=== PATIENT | male | born 1975 | race African-American/Black ===

== ENCOUNTER 2018-02-12 18:28 | Emergency (ER) | payer OTHER ==
[2018-02-12 19:29] VITALS: TEMP 98.8; BMI 37.8
[2018-02-12] MEDS ORDERED: ACETAMINOPHEN 500 MG TABLET (FP) PO ONE (19:30)
--- NOTE | 2018-02-12 19:30 | PDOC ---
Rapid Medical Evaluation Time Seen by Provider: 02/12/18 19:24 Medical Evaluation: Allergies Allergy/AdvReac Type Severity Reaction Status Date / Time Penicillins Allergy Hives Verified 02/08/16 01:17 02/12/18 19:24 Pt with complaint of coughing hard and causing abdominal to hurt. He is a + smoker. Started 5 days ago, no fever,no sob, small production of sputum. Did not take any pain meds. No acuter resp distress. Ambulated in to ER without difficulty. suspicous for viral resp illness vs pna with muscular pain Ordered CXR, tylenol for pain. PMH: HTN 150/103 takes metoprolol, lisinopril took at 5 pm today.
[2018-02-12] MEDS ORDERED: ACETAMINOPHEN 325 MG TABLET (FP) ONE (19:48)
--- NOTE | 2018-02-12 20:00 | PDOC ---
History of Present Illness - General Chief Complaint: Cold Symptoms Stated Complaint: ABDOMINAL PAIN/COUGHING Time Seen by Provider: 02/12/18 19:24 History Source: Patient - History of Present Illness Initial Comments: 02/12/18 21:04 42 year old male with cough x 5 days with abdominal pain cramping due to constant coughing. denies fever/ chills, headache, dizziness, chest pain, diaphoresis NVD, urinary symptoms. patient current every day smoker. Past History - Past Medical History Allergies/Adverse Reactions: Allergies Allergy/AdvReac Type Severity Reaction Status Date / Time Penicillins Allergy Hives Verified 02/08/16 01:17 Home Medications: Ambulatory Orders Amlodipine Besylate [Norvasc -] 10 mg PO DAILY #30 tablet 09/21/14 Nebivolol [Bystolic -] 5 mg PO DAILY 06/09/15 Albuterol 0.083% Nebulizer Brittney [Ventolin 0.083% Nebulizer Soln -] 1 neb NEB QID PRN #30 vial 02/12/18 Albuterol Sulfate Inhaler - [Ventolin HFA Inhaler -] 1 - 2 inh PO QID PRN #1 inhaler 02/12/18 Guaifenesin [Mucinex] 600 mg PO BID PRN #10 tab.er.12h 02/12/18 Ibuprofen 600 mg PO QID PRN #20 tablet 02/12/18 COPD: No HTN: Yes Hypercholesterolemia: Yes - Suicide/Smoking/Psychosocial Hx Smoking Status: Yes Smoking History: Never smoked Have you smoked in the past 12 months: No Number of Cigarettes Smoked Daily: 0 Cigars Per Day: 2 Information on smoking cessation initiated: No Hx Alcohol Use: No Drug/Substance Use Hx: No Substance Use Type: None *Physical Exam - Vital Signs Last Vital Signs Temp Pulse Resp BP Pulse Ox 98.8 F 79 18 150/103 100 02/12/18 19:26 02/12/18 19:26 02/12/18 19:26 02/12/18 19:26 02/12/18 19:26 - Physical Exam General Appearance: Yes: Appropriately Dressed HEENT: positive: Nasal Congestion Respiratory/Chest: positive: Lungs Clear, Normal Breath Sounds. negative: Chest Tender Cardiovascular: positive: Regular Rhythm, Regular Rate Gastrointestinal/Abdominal: positive: Normal Bowel Sounds, Tender (generalized on palpation ), Soft Musculoskeletal: positive: Normal Inspection Extremity: positive: Normal Capillary Refill, Normal Inspection, Normal Range of Motion Integumentary: positive: Normal Color, Dry, Warm Neurologic: positive: Fully Oriented, Alert, Normal Mood/Affect ED Treatment Course - Medications Given in the ED: ED Medications Discontinued Medications Generic Name Dose Route Start Last Admin Trade Name Freq PRN Reason Stop Dose Admin Acetaminophen 975 mg 02/12/18 19:30 02/12/18 19:52 Tylenol - PO 02/12/18 19:31 975 mg ONCE ONE Administration Medical Decision Making - Medical Decision Making URI; high blood pressure P; albuterol cough suppresant. 02/12/18 21:26 B/P NOTED TO BE ELEVATED. PATIENT IS ASYMPTOMATIC WITH HISTORY OF HYPERTENSION. will give clonidine and reevaluate. strict return precautions reviewed with patient. close pmd follow up for b/p management discussed with patient in detail. *DC/Admit/Observation/Transfer Diagnosis at time of Disposition: Muscle spasm Reactive airway disease Qualifiers: Asthma severity: mild Asthma persistence: intermittent Asthma complication type : uncomplicated Qualified Code(s): J45.20 - Mild intermittent asthma, uncomplicated - Discharge Dispostion Disposition: HOME - Prescriptions Prescriptions: Albuterol 0.083% Nebulizer Brittney [Ventolin 0.083% Nebulizer Soln -] 1 neb NEB QID PRN #30 vial PRN Reason: Cough Albuterol Sulfate Inhaler - [Ventolin HFA Inhaler -] 1 - 2 inh PO QID PRN #1 inhaler PRN Reason: Cough Guaifenesin [Mucinex] 600 mg PO BID PRN #10 tab.er.12h PRN Reason: Cough Ibuprofen 600 mg PO QID PRN #20 tablet PRN Reason: Pain - Referrals Referrals: Dandre Mead MD [Primary Care Provider] - Call tomorrow - Patient Instructions Printed Discharge Instructions: DI for Viral Upper Respiratory Infection -- Adult Additional Instructions: use albuterol inhaler as prescribed. take ibuprofen every 6 hours as needed for pain. follow up with your doctor as soon as possible. return to the ER if symptoms worsen. - Post Discharge Activity Forms/Work/School Notes: Back to Work
[2018-02-12] MEDS ORDERED: ALBUTEROL SO4 2.5/IPRATROPIUM 0.5 INH SOL 3 ML VIAL.NEB. NEB ONE ×2 (20:09→20:25)
[2018-02-12] MEDS ORDERED: IBUPROFEN 400 MG TABLET (FP) PO ONE ×2 (20:09→20:24)
--- NOTE | 2018-02-12 21:16 | PDOC ---
*Physical Exam - Vital Signs Last Vital Signs Temp Pulse Resp BP Pulse Ox 98.8 F 79 18 150/103 100 02/12/18 19:26 02/12/18 19:26 02/12/18 19:26 02/12/18 19:26 02/12/18 19:26 ED Treatment Course - Medications Given in the ED: ED Medications Discontinued Medications Generic Name Dose Route Start Last Admin Trade Name Freq PRN Reason Stop Dose Admin Acetaminophen 975 mg 02/12/18 19:30 02/12/18 19:52 Tylenol - PO 02/12/18 19:31 975 mg ONCE ONE Administration Albuterol/Ipratropium 1 amp 02/12/18 20:09 02/12/18 20:31 Duoneb - NEB 02/12/18 20:10 1 amp ONCE ONE Administration Ibuprofen 400 mg 02/12/18 20:09 02/12/18 20:31 Motrin - PO 02/12/18 20:10 400 mg ONCE ONE Administration Medical Decision Making - Medical Decision Making 02/12/18 21:15 agree with care from DANAE ybarra *DC/Admit/Observation/Transfer Diagnosis at time of Disposition: Muscle spasm Reactive airway disease Qualifiers: Asthma severity: mild Asthma persistence: intermittent Asthma complication type : uncomplicated Qualified Code(s): J45.20 - Mild intermittent asthma, uncomplicated - Discharge Dispostion Disposition: HOME - Prescriptions Prescriptions: Albuterol 0.083% Nebulizer Brittney [Ventolin 0.083% Nebulizer Soln -] 1 neb NEB QID PRN #30 vial PRN Reason: Cough Albuterol Sulfate Inhaler - [Ventolin HFA Inhaler -] 1 - 2 inh PO QID PRN #1 inhaler PRN Reason: Cough Guaifenesin [Mucinex] 600 mg PO BID PRN #10 tab.er.12h PRN Reason: Cough Ibuprofen 600 mg PO QID PRN #20 tablet PRN Reason: Pain - Referrals Referrals: Dandre Mead MD [Primary Care Provider] - Call tomorrow - Patient Instructions Printed Discharge Instructions: DI for Viral Upper Respiratory Infection -- Adult Additional Instructions: use albuterol inhaler as prescribed. take ibuprofen every 6 hours as needed for pain. follow up with your doctor as soon as possible. return to the ER if symptoms worsen. - Post Discharge Activity Forms/Work/School Notes: Back to Work
[2018-02-12] MEDS ORDERED: cloNIDine HCL 0.1 MG TABLET PO ONE (21:26)
[2018-02-12 21:27] VITALS: PULSE 78
[2018-02-12] MEDS ORDERED: cloNIDine HCL 0.1 MG TABLET ONE (21:28)
[2018-02-12 22:23] VITALS: BP 147/115
== END 2018-02-12 22:28 | disposition home or self-care (01) ==
LOC: JER 18:28
PROC: 3E0F7GC Introduction of Other Therapeutic Substance into Respiratory Tract, Via Natural or Artificial Opening (ICD-10-PCS; principal; 2018-02-12)
DX: J45.20 Mild intermittent asthma, uncomplicated (principal); M62.838 Other muscle spasm; I10 Essential (primary) hypertension; F17.210 Nicotine dependence, cigarettes, uncomplicated
CPT/HCPCS: 71046-TC-FY; 94640; 99282-25; J0735; J7620

== ENCOUNTER 2018-04-07 16:03 | Emergency (ER) | payer OTHER ==
--- NOTE | 2018-04-07 16:30 | PDOC ---
Rapid Medical Evaluation Time Seen by Provider: 04/07/18 16:28 Medical Evaluation: Allergies Allergy/AdvReac Type Severity Reaction Status Date / Time Penicillins Allergy Hives Verified 04/07/18 16:28 I have performed a brief in-person evaluation of this patient. The patient presents with a chief complaint of: right low back pain radiating down back of right buttock, leg and into right pelvis - describes as burning. Does a lot of heavy lifting. Has been taking ibuprofen only for pain is getting worse Pertinent physical exam findings: no midline lumbar spine TTP b/l I have ordered the following: nothing The patient will proceed to the ED for further evaluation. Discharge Disposition - Diagnosis Low back pain with sciatica Qualifiers: Chronicity: acute Back pain laterality: right Sciatica laterality: sciatica of right side Qualified Code(s): M54.41 - Lumbago with sciatica, right side - Referrals - Patient Instructions - Post Discharge Activity
[2018-04-07 16:36] VITALS: BP 159/101; PULSE 84; TEMP 98.3; BMI 38.1
--- NOTE | 2018-04-07 19:05 | PDOC ---
History of Present Illness - General Chief Complaint: Back Pain Stated Complaint: BACK PAIN Time Seen by Provider: 04/07/18 16:28 History Source: Patient Exam Limitations: No Limitations - History of Present Illness Initial Comments: 43-year-old male with lower back pain and right-sided posterior lateral leg radiculopathy. He denies loss of bowel or bladder function. He has Intermittent weakness in his right leg. His pain is exacerbated with activity relieved with rest. He has taken [id number] Motrin without much relief. 04/07/18 19:00 04/07/18 19:01 Past History - Past Medical History Allergies/Adverse Reactions: Allergies Allergy/AdvReac Type Severity Reaction Status Date / Time Penicillins Allergy Hives Verified 04/07/18 16:28 Home Medications: Ambulatory Orders Amlodipine Besylate [Norvasc -] 10 mg PO DAILY #30 tablet 09/21/14 Nebivolol [Bystolic -] 5 mg PO DAILY 06/09/15 Cyclobenzaprine HCl [Flexeril 10 mg] 10 mg PO HS PRN #10 tablet 04/07/18 Methylprednisolone [Medrol Dose Vipul] 4 mg PO ASDIR #21 tablet 04/07/18 COPD: No HTN: Yes Hypercholesterolemia: Yes - Suicide/Smoking/Psychosocial Hx Smoking Status: Yes Smoking History: Never smoked Have you smoked in the past 12 months: No Number of Cigarettes Smoked Daily: 0 Cigars Per Day: 2 Hx Alcohol Use: No Drug/Substance Use Hx: No Substance Use Type: None *Physical Exam - Vital Signs Last Vital Signs Temp Pulse Resp BP Pulse Ox 98.3 F 84 19 159/101 100 04/07/18 16:28 04/07/18 16:28 04/07/18 16:28 04/07/18 16:28 04/07/18 16:28 - Physical Exam Comments: Lumbar spine skin color and temperature is normal. Range of motion is slightly decreased in both flexion and extension with pain. He has 5 out of 5 strength in bilateral lower extremities mildly positive straight leg raise test on the right negative on the left. He has no gross sensory motor deficits. He is neurovascularly intact distally. 04/07/18 19:02 *DC/Admit/Observation/Transfer Diagnosis at time of Disposition: Low back pain with sciatica Qualifiers: Chronicity: acute Back pain laterality: right Sciatica laterality: sciatica of right side Qualified Code(s): M54.41 - Lumbago with sciatica, right side - Discharge Dispostion Disposition: HOME Condition at time of disposition: Stable Admit: No - Referrals Referrals: Dandre Mead MD [Primary Care Provider] - Tristen Kramer [Non Staff, Medical] - - Patient Instructions Printed Discharge Instructions: Lumbar Radiculopathy, DI for Lumbar Radiculopathy Additional Instructions: Return to the emergency room if symptoms worsen or go on resolved prior to follow-up - Post Discharge Activity
== END 2018-04-07 19:07 | disposition home or self-care (01) ==
LOC: JER 16:03 → JERFT 16:03
DX: M54.41 Lumbago with sciatica, right side (principal); I10 Essential (primary) hypertension; E78.00 Pure hypercholesterolemia, unspecified; Z88.0 Allergy status to penicillin
CPT/HCPCS: 99281-25

== ENCOUNTER 2019-10-27 00:45 | Emergency (ER) | payer OTHER ==
[2019-10-27 02:41] VITALS: BP 162/98; PULSE 67; TEMP 98.2; BMI 34.7
[2019-10-27] MEDS ORDERED: predniSONE 20 MG TABLET (UD) PO ONE (03:54)
[2019-10-27] MEDS ORDERED: ALBUTEROL SO4 2.5/IPRATROPIUM 0.5 INH SOL 3 ML VIAL.NEB. NEB ONE (03:59)
[2019-10-27] MEDS ORDERED: predniSONE 20 MG TABLET (UD) ONE (03:59)
[2019-10-27] MEDS: ALBUTEROL SO4 2.5/IPRATROPIUM 0.5 INH SOL 3 ML VIAL.NEB. NEB SCH ×4 (04:05→04:55)
--- NOTE | 2019-10-27 04:23 | PDOC ---
History of Present Illness - General Chief Complaint: Respiratory Stated Complaint: Wheezing Time Seen by Provider: 10/27/19 03:43 History Source: Patient - History of Present Illness Initial Comments: 10/27/19 04:25 44-year-old male complaining of chest congestion, wheezing and cough for the last 2 days. Patient reports that the symptoms have worsened and patient is unable to sleep at night. Patient reports that he is a cigarettes smoker denies chest pain, nausea, vomiting, abdominal pain, headache, fever/ chills Past History - Past Medical History Allergies/Adverse Reactions: Allergies Allergy/AdvReac Type Severity Reaction Status Date / Time Penicillins Allergy Hives Verified 10/27/19 02:42 Home Medications: Ambulatory Orders Amlodipine Besylate [Norvasc -] 10 mg PO DAILY #30 tablet 09/21/14 Nebivolol [Bystolic -] 5 mg PO DAILY 06/09/15 Cyclobenzaprine HCl [Flexeril 10 mg] 10 mg PO HS PRN #10 tablet 04/07/18 Methylprednisolone [Medrol Dose Vipul] 4 mg PO ASDIR #21 tablet 04/07/18 Albuterol Sulfate Inhaler - [Ventolin HFA Inhaler -] 1 - 2 inh PO Q4H PRN #1 inhaler 10/27/19 Azithromycin 250 mg PO DAILY #4 tablet 10/27/19 predniSONE [Deltasone -] 40 mg PO UTDICT #8 tablet 10/27/19 COPD: No HTN: Yes Hypercholesterolemia: Yes - Psycho Social/Smoking Cessation Hx Smoking Status: Yes Smoking History: Current every day smoker Have you smoked in the past 12 months: No Number of Cigarettes Smoked Daily: 0 Cigars Per Day: 2 Hx Alcohol Use: No Drug/Substance Use Hx: No Substance Use Type: None Review of Systems - Review of Systems Able to Perform ROS?: Yes Is the patient limited [place]ian proficient: No Constitutional: No: Symptoms Reported, See HPI, Chills, Diaphoresis, Fever, Loss of Appetite, Malaise, Night Sweats, Weakness, Weight Stable, Unintentional Wgt. Loss, Unexplained wgt Loss, Other *Physical Exam - Vital Signs Last Vital Signs Temp Pulse Resp BP Pulse Ox 98.2 F 67 18 162/98 98 10/27/19 00:50 10/27/19 00:50 10/27/19 00:50 10/27/19 00:50 10/27/19 00:50 - Physical Exam General Appearance: Yes: Appropriately Dressed Respiratory/Chest: positive: Decreased Breath Sounds, Wheezing, Other (coarse breath sounds) Extremity: positive: Normal Capillary Refill, Normal Inspection, Normal Range of Motion Integumentary: positive: Normal Color, Dry, Warm Neurologic: positive: Fully Oriented, Alert, Normal Mood/Affect ED Progress Note - Progress Note Progress Note: 10/27/19 06:46 A: Bronchitis P: chest xray duoneb prednisone azithromycin Discharge - Discharge Information Problems reviewed: Yes Clinical Impression/Diagnosis: Bronchitis Condition: Fair Disposition: HOME - Additional Discharge Information Prescriptions: Albuterol Sulfate Inhaler - [Ventolin HFA Inhaler -] 1 - 2 inh PO Q4H PRN #1 inhaler PRN Reason: Asthma Azithromycin 250 mg PO DAILY #4 tablet predniSONE [Deltasone -] 40 mg PO UTDICT #8 tablet - Follow up/Referral Referrals: Dandre Mead MD [Primary Care Provider] - - Patient Discharge Instructions Patient Printed Discharge Instructions: DI for Acute Bronchitis Additional Instructions: Use albuterol every 4 hours as needed for wheezing. Your first dose of prednisone was given today. Take your dose tomorrow Take azithromycin as prescribed. Follow-up with your doctor as soon as possible Return to the emergency room for any worsening symptoms. - Post Discharge Activity Work/Back to School Note: Back to Work
--- NOTE | 2019-10-27 04:43 | PDOC ---
*Physical Exam - Vital Signs Last Vital Signs Temp Pulse Resp BP Pulse Ox 98.2 F 67 18 162/98 98 10/27/19 00:50 10/27/19 00:50 10/27/19 00:50 10/27/19 00:50 10/27/19 00:50 ED Treatment Course - Medications Given in the ED: ED Medications Discontinued Medications Generic Name Dose Route Start Last Admin Trade Name Freq PRN Reason Stop Dose Admin Prednisone 60 mg 10/27/19 03:54 10/27/19 04:05 Deltasone - PO 10/27/19 03:55 60 mg ONCE ONE Administration Discharge - Discharge Information Problems reviewed: Yes Clinical Impression/Diagnosis: Bronchitis Condition: Fair Disposition: HOME - Additional Discharge Information Prescriptions: Albuterol Sulfate Inhaler - [Ventolin HFA Inhaler -] 1 - 2 inh PO Q4H PRN #1 inhaler PRN Reason: Asthma Azithromycin 250 mg PO DAILY #4 tablet predniSONE [Deltasone -] 40 mg PO UTDICT #8 tablet - Follow up/Referral Referrals: Dandre Mead MD [Primary Care Provider] - - Patient Discharge Instructions Patient Printed Discharge Instructions: DI for Acute Bronchitis Additional Instructions: Use albuterol every 4 hours as needed for wheezing. Your first dose of prednisone was given today. Take your dose tomorrow Take azithromycin as prescribed. Follow-up with your doctor as soon as possible Return to the emergency room for any worsening symptoms. - Post Discharge Activity Work/Back to School Note: Back to Work
[2019-10-27] MEDS ORDERED: AZITHROMYCIN 500 MG TABLET PO ONE (05:24)
[2019-10-27] MEDS ORDERED: AZITHROMYCIN 250 MG TABLET ONE (05:36)
== END 2019-10-27 05:38 | disposition home or self-care (01) ==
LOC: JER 00:45
DX: J40 Bronchitis, not specified as acute or chronic (principal); Z88.0 Allergy status to penicillin
CPT/HCPCS: 71046-TC-FY; 99281-25

== ENCOUNTER 2023-09-22 02:55 | Emergency (ER) | payer OTHER ==
[2023-09-22 03:13] VITALS: RESP 19; BMI 27.3
[2023-09-22] MEDS ORDERED: amLODIPine BESYLATE 10 MG TABLET (FP) PO ONE (03:23)
[2023-09-22] MEDS ORDERED: LOSARTAN POTASSIUM 25 MG TABLET PO ONE ×2 (03:23→08:05)
[2023-09-22] MEDS ORDERED: ACETAMINOPHEN 1000 MG/100 ML BAG IVPB ONE (03:24)
[2023-09-22] MEDS ORDERED: ACETAMINOPHEN INJECTION 100 ML IVPB ONE (03:44)
[2023-09-22] MEDS ORDERED: LOSARTAN POTASSIUM 25 MG TABLET ONE ×2 (03:44→08:12)
[2023-09-22 04:23] LABS: BASO % 0.6 % (0-2.0); EOS % 4.8 % (0-4.5); HEMATOCRIT 50.2 % (35.4-49); HEMOGLOBIN 17.9 GM/dL (11.7-16.9); LYMPH % 29.9 % (8-40); MCH 31.9 pg (25.7-33.7); MCHC 35.6 g/dl (32.0-35.9); MEAN CELL VOLUME 89.6 fl (80-96); MEAN PLT VOLUME 10.4 fl (7.5-11.1); MONO % 7.8 % (3.8-10.2); NEUT % 56.9 % (42.8-82.8); PLATELET COUNT 189 10^3/uL (134-434); RDW 15.9 % (11.9-15.9); WHITE BLOOD COUNT 9.5 K/mm3 (4.0-10.0)
[2023-09-22 04:33] LABS: INR 1.14 (0.83-1.09); PROTHROMBIN TIME (PATIENT) 13.2 SEC (9.7-13.0)
[2023-09-22] MEDS ORDERED: SODIUM CHLORIDE 0.9% 500 ML INFUS.BAG IV ONE (04:37)
[2023-09-22] MEDS ORDERED: LACTATED RINGERS SOLUTION 1000 ML INFUS.BAG IV ONE (04:52)
[2023-09-22 05:02] LABS: POTASSIUM 3.4 mmol/L (3.5-5.1)
[2023-09-22 05:04] LABS: CALCIUM 9.5 mg/dL (8.5-10.1)
[2023-09-22 05:05] LABS: BLOOD UREA NITROGEN 7.6 mg/dL (7-18)
[2023-09-22 05:08] LABS: CREATININE 1.3 mg/dL (0.55-1.3)
[2023-09-22 05:09] LABS: TOT PROT 9.1 g/dl (6.4-8.2)
[2023-09-22] MEDS ORDERED: CLINDAMYCIN 600MG PREMIX IVPB 600 MG/50 ML BAG IVPB ONE ×2 (05:29→05:54)
[2023-09-22] MEDS ORDERED: POTASSIUM CHLORIDE ORAL LIQUID 20 MEQ/15 ML PO ONE (05:40)
[2023-09-22] MEDS ORDERED: POTASSIUM CHLORIDE ORAL LIQUID 20 MEQ/15 ML ONE (05:54)
[2023-09-22 06:35] LABS: ERYTHROCYTE SEDIMENTATION RATE 20 mm/hr (0-10)
[2023-09-22 07:12] VITALS: BP 193/109; PULSE 67; TEMP 97.9
[2023-09-22] MEDS ORDERED: HYDROCHLOROTHIAZIDE 12.5 MG CAPSULE (FP) PO ONE (08:05)
[2023-09-22] MEDS ORDERED: HYDROCHLOROTHIAZIDE 25 MG TABLET (FP) ONE (08:12)
== END 2023-09-22 09:53 | disposition short-term general hospital (02) ==
LOC: JER 02:55
PROC: 3E03329 Introduction of Other Anti-infective into Peripheral Vein, Percutaneous Approach (ICD-10-PCS; principal; 2023-09-22)
PROC: 3E033NZ Introduction of Analgesics, Hypnotics, Sedatives into Peripheral Vein, Percutaneous Approach (ICD-10-PCS; 2023-09-22)
DX: R13.10 Dysphagia, unspecified (principal); J02.9 Acute pharyngitis, unspecified; R68.83 Chills (without fever); R61 Generalized hyperhidrosis; R22.1 Localized swelling, mass and lump, neck; T36.0X5A Adverse effect of penicillins, initial encounter; J36 Peritonsillar abscess; Z85.79 Personal history of other malignant neoplasms of lymphoid, hematopoietic and related tissues; Z20.822 Contact with and (suspected) exposure to COVID-19
CPT/HCPCS: 0241U-QW; 36415; 70491-TC; 80053; 85025; 85610; 85651; 85730; 86140; 86850; 86900; 86901; 87040; 87651; 99285-25; Q9967